=== PATIENT | female | born 1990 ===

== ENCOUNTER 2017-02-16 17:59 | Emergency (ER) | payer BC ==
[2017-02-16 18:23] VITALS: RESP 18
--- NOTE | 2017-02-16 19:42 | C.PDOC ---
History Of Present Illness 26 yo female w/o significant PMHx come in for evaluation of Right breast pain developed for past 3 days. Pt reports, "noted some pimple on my nipple area and squeeze it". Otherwise, pt denies fever, chills, previous hx of breast ds, CP, SOB, dyspnea, abd. pain, N/V/D, UTi sx. Ambulate to Ed for evaluation, not in any apparent distress. Time Seen by Provider: 02/16/17 18:39 Chief Complaint (Nursing): Breast Problem History Per: Patient Onset/Duration Of Symptoms: Gradual Past Medical History Reviewed: Historical Data, Nursing Documentation, Vital Signs Vital Signs: Last Vital Signs Temp 98.7 F 02/16/17 18:20 Pulse 78 02/16/17 18:20 Resp 18 02/16/17 18:20 BP 131/81 02/16/17 18:20 Pulse Ox 97 02/16/17 18:20 - Medical History PMH: Asthma Surgical History: No Surg Hx Family History: States: No Known Family Hx - Social History Hx Tobacco Use: No Hx Alcohol Use: No Hx Substance Use: No - Immunization History Hx Tetanus Toxoid Vaccination: No Hx Influenza Vaccination: No Hx Pneumococcal Vaccination: No Review Of Systems Except As Marked, All Systems Reviewed And Found Negative. Constitutional: Negative for: Fever, Chills ENT: Negative for: Throat Pain Cardiovascular: Negative for: Chest Pain, Palpitations Respiratory: Negative for: Cough, Shortness of Breath, Wheezing Gastrointestinal: Negative for: Nausea, Vomiting, Abdominal Pain, Diarrhea Genitourinary: Negative for: Dysuria, Frequency, Incontinence, Hematuria, Vaginal Discharge, Vaginal Bleeding Musculoskeletal: Negative for: Neck Pain, Back Pain Skin: Positive for: Other (Right breast pain) Neurological: Negative for: Weakness, Headache, Dizziness Physical Exam - Physical Exam Appears: Well, Non-toxic, No Acute Distress Skin: Normal Color, Warm, No Rash Head: Normacephalic Eye(s): bilateral: PERRL Throat: Normal, No Erythema, No Exudate, No Drooling Neck: Normal ROM, Trachea Midline, Supple Lymphatic: No Axilla Node Tenderness, Other (Right breast exam: small tender nodule over areola at 5 o'clock. No flactulance, no discharge. no erythema.) Chest: Symmetrical, No Deformity, No Tenderness Respiratory: No Decreased Breath Sounds, No Accessory Muscle Use, No Stridor, No Wheezing Gastrointestinal/Abdominal: Soft, No Tenderness Extremity: No Pedal Edema Neurological/Psych: Oriented x3, Normal Speech ED Course And Treatment O2 Sat by Pulse Oximetry: 97 Pulse Ox Interpretation: Normal Progress Note: On re-eavluation, pt is afebrile, hemodynamicaly stable. Non- toxic. Right breast: (+) exam c/w tender breast nodule r/o furuncle. Pt advised. ref. to f/u with Surgery in 2-3 days for re-eval. reutrn if any new changes. Disposition Counseled Patient/Family Regarding: Studies Performed, Diagnosis, Need For Followup, Rx Given - [facility]position [facility] Disposition: HOME/ ROUTINE Disposition Time: 19:45 Condition: STABLE Additional Instructions: Warm compresses to painful area daily for 5 minutes Take medication as prescribed Follow up with [facility] and Breast specialist in 2-3 days for re-evaluation. return to ED if any worsening or new changes. Prescriptions: Doxycycline Hyclate 100 mg PO BID #14 capsule Instructions: Breast Mass (ED) - Clinical Impression Clinical Impression: Breast nodule
[2017-02-16 20:12] VITALS: BP 124/72; PULSE 75; TEMP 98.2; O2SAT 98
== END 2017-02-16 20:12 | disposition home or self-care (01) ==
LOC: C.ER 17:59
DX: N63 Unspecified lump in breast (principal)